=== PATIENT | male | born 1970 ===

== ENCOUNTER 2025-02-18 06:21 | Day surgery (SDC) | payer MEDICARE, SELFPAY ==
[2025-02-18] VITALS (16 sets, daily range): BP systolic 91–140; BP diastolic 52–73; BMI 20.7
[2025-02-18] MEDS: NORMOSOL-R/PLASMALYTE-A 1000 IV (11:50)
== END 2025-02-18 17:07 | disposition home or self-care (01) ==
LOC: SDS 06:21
PROVIDERS: ATTENDING PHYSICIAN Otolaryngology
DX: H66.92 Otitis media, unspecified, left ear (principal)
CPT/HCPCS: 69436; 74018; 93005